=== PATIENT | male | born 1995 | race Caucasian/White ===

== ENCOUNTER 2019-10-18 10:36 | Outpatient (CLI) | payer BC, SELFPAY ==
--- NOTE | ~2019-10-18 | MR_ITS ---
EXAMINATION: MR brain/brain stem wo con EXAM DATE: 10/18/2019 11:28 INDICATION: Posterior headaches. TECHNIQUE: Magnetic resonance imaging (MRI) of the brain/brain stem obtained without contrast. Sagitt al T1, axial diffusion, gradient echo (T2*), T1, T2, FLAIR sequences obtained. There is no prior st udy for comparison. FINDINGS: There are no areas of restricted diffusion to suggest acute infarction. There is no acute hemorrhage seen on the T2*, a hemosiderin sensitive sequence. No intraparenchymal brain mass. The ve ntricles are normal in size. There are no extra-axial collections. Flow voids are seen in the cereb ral arteries on the T2-weighted sequences consistent with their expected patency. The orbits are unr emarkable. Soft tissue is unremarkable. Mild to moderate bilateral ethmoid mucoperiosteal thickeni ng, mild bilateral maxillary sinus mucoperiosteal thickening. IMPRESSION: 1. No acute intracranial findings. 2. Mild to moderate mucoperiosteal thickening. Reviewed, dictated and finalized at location B. [employer]
== END 2019-10-18 10:37 | disposition home or self-care (01) ==
PROVIDERS: Visit Provider Internal Medicine Rheumatology
DX: R51 Headache (principal)
CPT/HCPCS: 70551

== ENCOUNTER 2020-09-25 08:52 | Outpatient (CLI) | payer OTHER, SELFPAY ==
--- NOTE | 2020-10-19 20:36 | WPDHOMESLEEP ---
Sleep Study - Home Unattended Date of Study: 09/25/20 Ordering Provider: Solomon Paz MD Interpreting Provider: Lora Vanessa MD Home Sleep Study Type: Watch PAT Height: 1.96 m Weight: 144.696 kg Body Mass Index: 37.8 Neck Circumference (inches): 18 [place]: 1 Reason for Sleep Study non restorative sleep, tired all day, poor memory, excessive daytime sleepiness Sleep History Evens Babcock is a 25-year-old man with 10 years of poor quality sleep, worsened in the last 4 years. He is tired throughout the day and has difficulty remembering things. He wakes up throughout the night, has excessive daytime sleepiness and has difficulty waking in the morning. There is a positive family history with both parents and 2 older brothers having sleep apnea. He constantly snores and it is constantly loud enough that others complain about it. He occasionally awakens at night with heartburn, belching or coughing. He rarely awakens from sleep feeling short of breath. He does not have trouble sleeping with a cold. He rarely gasps for breath at night. He occasionally has breathing problems at night observed by others. He rarely sweats excessively at night. He occasionally notices his heart pounding or beating irregularly at night. He does not fall asleep during the day or fall asleep involuntarily. He does not fall asleep while driving. He does not fall asleep while exerting physical effort. He does not have loss of muscle tone with strong emotion. He frequently has daytime difficulties due to excessive sleepiness. He is a self employed graphic design artist. He does not feel paralyzed on waking or falling asleep. He does not have vivid dreamlike scenes upon awakening or falling asleep. He never is afraid to go to sleep. He rarely has nightmares. He occasionally remembers his dreams. He frequently has racing thoughts. He rarely feels sad or depressed. He occasionally feels anxiety. He rarely has muscular tension. He does not notice parts of his body jerking and he does not kick at night. He occasionally has crawling and aching feelings in his legs. He rarely has any kind of leg pain at night. He does not have morning jaw pain. He does not grind his teeth during sleep. He rarely is bothered by pain during the day. He occasionally has awakened by pain at night. He does not wake up feeling stiff in the morning with sore or achy muscles. He rarely wakes up with pain in the neck and spine. He has fatigue, tremors, memory problems and concentration difficulties. He occasionally has morning headaches. He does not take naps in the afternoon or evening. A short 10 or 15 minute nap is not refreshing. He is usually drowsy in the morning for 3 hours or longer. He reports gaining 20 lb in the last year. Normal bedtime is between 10 and 11:00 p.m. taking 10-30 minutes to fall asleep. He typically wakes up 3-4 times at night for 10 minutes. He will often go urinate and then try to return to sleep which usually takes about 10 minutes. He wakes in the morning between 6:00 - 7:00 a.m.. His weekend schedule is the same. Habits: Never smoked tobacco. Caffeine 4 servings a day soda. No alcohol or recreational drugs. [facility] Past Medical History Medical History (Updated 10/19/20 @ 20:56 by Lora Vanessa MD) Anxiety Dyslipidemia Tremor Surgical History Surgical History (Updated 10/19/20 @ 20:48 by Lora Vanessa MD) History of shoulder surgery right shoulder dislocation Family History Family History (Updated 10/19/20 @ 20:48 by Lora Vanessa MD) Father Obstructive sleep apnea Mother Obstructive sleep apnea Sibling Obstructive sleep apnea Sibling Obstructive sleep apnea Other Diabetes mellitus Multiple sclerosis Social History Social History (Updated 10/19/20 @ 20:42 by Lora Vanessa MD) Smoking status: Never smoker Alcohol intake: never Medications Medications: propranolol 60 mg b.i.d. for trem
[2020-10-19 21:02] VITALS: BMI 37.8
== END 2020-09-25 08:53 | disposition home or self-care (01) ==
LOC: ANHCSM 08:55
PROVIDERS: Visit Provider Internal Medicine Rheumatology
DX: G47.33 Obstructive sleep apnea (adult) (pediatric) (principal); E66.01 Morbid (severe) obesity due to excess calories; Z68.37 Body mass index [BMI] 37.0-37.9, adult
CPT/HCPCS: 95800